=== PATIENT | female | born 1975 | race Caucasian/White ===

== ENCOUNTER 2018-07-13 04:38 | Emergency (ER) | payer MEDICAID ==
[~2018-07-13] VITALS: Ht 182.9 cm; Wt 90.2 kg
[2018-07-13] MEDS ORDERED: ipratropium/albuterol 3ml nebule NEB ONE (04:50)
[2018-07-13] MEDS ORDERED: predniSONE 20 mg tablet PO ONE (04:50)
[2018-07-13] MEDS ORDERED: TAM75C PO (05:19)
[2018-07-13] MEDS ORDERED: PRED10TA PO (05:19)
[2018-07-13] MEDS ORDERED: ALBU8.5H8 IH (05:19)
[2018-07-13 05:30] VITALS: BP 129/93
== END 2018-07-13 05:32 | disposition home or self-care (01) ==
LOC: ER 04:38
DX: J45.901 Unspecified asthma with (acute) exacerbation (principal); Z79.2 Long term (current) use of antibiotics; Z79.899 Other long term (current) drug therapy
CPT/HCPCS: 71045; 94640; 94760; 99283; J7512

== ENCOUNTER 2021-08-10 07:27 | Day surgery (SDC) | payer MEDICAID ==
[~2021-08-10] VITALS: Ht 180.3 cm; Wt 80.8 kg
[~2021-08-10 07:27] MED LIST: ALBU8.5H17 IH; PRED10TA PO
[2021-08-10] MEDS ORDERED: LIDOcaine 1% 30ml preserv. free vial IJ STA (07:41)
[2021-08-10] MEDS ORDERED: FURO20TA4 PO (07:45)
[2021-08-10] MEDS ORDERED: SPIR50TA5 PO (07:45)
[2021-08-10] MEDS ORDERED: THIA100T70 PO (07:45)
[2021-08-10] MEDS ORDERED: ALBU1.25 (07:45)
[2021-08-10] MEDS ORDERED: albumin 25% 100mL bottle x 1 IV PRN (07:45)
[2021-08-10] MEDS ORDERED: DOCU-345 PO (07:45)
[2021-08-10 08:00] VITALS: BP 98/68
[2021-08-10 08:40] VITALS: BP 119/68
[2021-08-10 08:45] VITALS: BP 116/84
[2021-08-10 09:00] VITALS: BP 111/64
[2021-08-10 09:15] VITALS: BP 99/61
[2021-08-10 09:30] VITALS: BP 106/68
[2021-08-10 10:09] LABS: LYMPHOCYTES,BODY FLUID 61 %; MONOCYTES,BODY FLUID 37 %; NEUTROPHILS,BODY FLUID 2 %
[2021-08-10 10:10] LABS: BF RBC COUNT 33 /CU MM; BF WBC COUNT 78 /CU MM (0-1000); BFAPPEAR CLEAR; BFCOLOR YELLOW; BFVOLUME 56 ML
[2021-08-10 10:11] LABS: TOTAL PROTEIN,BODY FLUID < 2.0 G/DL
== END 2021-08-10 09:32 | disposition home or self-care (01) ==
LOC: SSTAY O 07:27
PROVIDERS: ATTEND Radiology Diagnostic Radiology
DX: R18.8 Other ascites (principal); R14.0 Abdominal distension (gaseous); J45.909 Unspecified asthma, uncomplicated; K72.90 Hepatic failure, unspecified without coma; F17.210 Nicotine dependence, cigarettes, uncomplicated; Z72.89 Other problems related to lifestyle; Z79.899 Other long term (current) drug therapy
CPT/HCPCS: 49083; 84157; 87070; 89051

== ENCOUNTER 2021-08-23 07:05 | Day surgery (SDC) | payer MEDICAID ==
[2021-08-23] VITALS (9 sets, daily range): BP systolic 98–116; BP diastolic 54–62
[~2021-08-23] VITALS: Ht 180.3 cm; Wt 80.8 kg
[~2021-08-23 07:05] MED LIST changes: +ALBU1.25; -ALBU8.5H17 IH; +DOCU-345 PO; +FURO20TA4 PO; -PRED10TA PO; +SPIR50TA5 PO; +THIA100T70 PO
[2021-08-23] MEDS ORDERED: LIDOcaine 1% 30ml preserv. free vial IJ STA (07:46)
[2021-08-23] MEDS ORDERED: albumin (human) 25% 100 ML IV solution IV PRN (08:40)
== END 2021-08-23 11:00 | disposition home or self-care (01) ==
LOC: SSTAY O 07:05
PROVIDERS: ATTEND Radiology Vascular & Interventional Radiology
DX: R18.8 Other ascites (principal); R14.0 Abdominal distension (gaseous); K72.90 Hepatic failure, unspecified without coma; J45.909 Unspecified asthma, uncomplicated; F17.210 Nicotine dependence, cigarettes, uncomplicated; Z79.899 Other long term (current) drug therapy; Z72.89 Other problems related to lifestyle
CPT/HCPCS: 49083; J3490; P9047

== ENCOUNTER 2021-09-06 07:27 | Day surgery (SDC) | payer MEDICAID ==
[2021-09-06] VITALS (7 sets, daily range): BP systolic 105–135; BP diastolic 62–74
[~2021-09-06] VITALS: Ht 180.3 cm; Wt 79.6 kg
[2021-09-06] MEDS ORDERED: LIDOcaine 1% 30ml preserv. free vial IJ STA (07:39)
[2021-09-06] MEDS ORDERED: albumin 25% 100mL bottle x 1 IV PRN (07:50)
[2021-09-06] MEDS ORDERED: ALBU8.5H17 IH (08:18)
== END 2021-09-06 10:50 | disposition home or self-care (01) ==
LOC: SSTAY O 07:27
PROVIDERS: ATTEND Preventive Medicine Aerospace Medicine
DX: R18.8 Other ascites (principal); R14.0 Abdominal distension (gaseous); K72.90 Hepatic failure, unspecified without coma; J45.909 Unspecified asthma, uncomplicated; F17.210 Nicotine dependence, cigarettes, uncomplicated; Z72.89 Other problems related to lifestyle; Z79.899 Other long term (current) drug therapy
CPT/HCPCS: 49083; J3490; P9047

== ENCOUNTER 2021-09-18 06:08 | Day surgery (SDC) | payer MEDICAID ==
[~2021-09-18] VITALS: Ht 177.8 cm; Wt 80.8 kg
[~2021-09-18 06:08] MED LIST changes: -ALBU1.25; +ALBU8.5H17 IH
[2021-09-18] MEDS ORDERED: LIDOcaine 1% 30ml preserv. free vial SQ STA (06:22)
[2021-09-18 06:25] VITALS: BP 146/74
[2021-09-18] MEDS ORDERED: albumin 25% 100mL bottle x 1 IV PRN (06:25)
[2021-09-18 08:18] VITALS: BP 128/74
[2021-09-18 08:33] VITALS: BP 108/67
[2021-09-18 08:41] VITALS: BP 118/79
== END 2021-09-18 08:50 | disposition home or self-care (01) ==
LOC: SSTAY O 06:08
PROVIDERS: ATTEND Radiology Diagnostic Radiology
DX: R18.8 Other ascites (principal); R14.0 Abdominal distension (gaseous); J45.909 Unspecified asthma, uncomplicated; K72.90 Hepatic failure, unspecified without coma; F17.290 Nicotine dependence, other tobacco product, uncomplicated; Z79.899 Other long term (current) drug therapy
CPT/HCPCS: 49083

== ENCOUNTER 2021-10-01 08:34 | Day surgery (SDC) | payer MEDICAID ==
[~2021-10-01] VITALS: Ht 180.3 cm; Wt 82.3 kg
[2021-10-01 08:47] VITALS: BP 124/77
[2021-10-01] MEDS ORDERED: LIDOcaine 1% 30ml preserv. free vial SQ STA (08:49)
[2021-10-01] MEDS ORDERED: albumin 25% 100mL bottle x 1 IV PRN (08:55)
[2021-10-01 09:31] VITALS: BP 125/75
[2021-10-01 09:45] VITALS: BP 116/76
[2021-10-01 09:59] VITALS: BP 114/79
[2021-10-01 10:15] VITALS: BP 112/75
== END 2021-10-01 10:35 | disposition home or self-care (01) ==
LOC: SSTAY O 08:34
PROVIDERS: ATTEND Radiology Diagnostic Radiology
DX: R18.8 Other ascites (principal); R14.0 Abdominal distension (gaseous); J45.909 Unspecified asthma, uncomplicated; K72.90 Hepatic failure, unspecified without coma; F17.290 Nicotine dependence, other tobacco product, uncomplicated; Z72.89 Other problems related to lifestyle; Z79.899 Other long term (current) drug therapy
CPT/HCPCS: 49083; J3490; P9047

== ENCOUNTER 2021-10-18 07:03 | Day surgery (SDC) | payer MEDICAID ==
[~2021-10-18] VITALS: Ht 177.8 cm; Wt 80.8 kg
[2021-10-18] MEDS ORDERED: LIDOcaine 1%/PF 5ML 10 MG/ML VIAL SQ ONE (07:15)
[2021-10-18] MEDS ORDERED: LIDOcaine 1%/PF 5ML 10 MG/ML VIAL IJ ONE (07:25)
[2021-10-18] MEDS ORDERED: albumin 25% 100mL bottle x 1 IV PRN (07:25)
[2021-10-18] MEDS ORDERED: CHOL10006 PO (07:25)
[2021-10-18 07:50] VITALS: BP 128/80
[2021-10-18 09:04] VITALS: BP 128/110
[2021-10-18 09:18] VITALS: BP 128/77
[2021-10-18 09:33] VITALS: BP 134/74
== END 2021-10-18 09:55 | disposition home or self-care (01) ==
LOC: SSTAY O 07:03
PROVIDERS: ATTEND Radiology Diagnostic Radiology
DX: R18.8 Other ascites (principal); R14.0 Abdominal distension (gaseous); K72.10 Chronic hepatic failure without coma; J45.909 Unspecified asthma, uncomplicated; Z72.89 Other problems related to lifestyle; Z79.899 Other long term (current) drug therapy
CPT/HCPCS: 49083

== ENCOUNTER 2021-10-26 07:42 | Day surgery (SDC) | payer MEDICAID ==
[~2021-10-26] VITALS: Ht 180.3 cm; Wt 77.4 kg
[2021-10-26] VITALS (10 sets, daily range): BP systolic 94–120; BP diastolic 52–77
[~2021-10-26 07:42] MED LIST changes: +CHOL10006 PO
[2021-10-26] MEDS ORDERED: albumin 25% 100mL bottle x 1 IV PRN (07:55)
[2021-10-26] MEDS ORDERED: LIDOcaine 1%/PF 5ML 10 MG/ML VIAL IJ ONE (08:25)
== END 2021-10-26 10:55 | disposition home or self-care (01) ==
LOC: SSTAY O 07:42
PROVIDERS: ATTEND Radiology Diagnostic Radiology
DX: R18.8 Other ascites (principal); R14.0 Abdominal distension (gaseous); J45.909 Unspecified asthma, uncomplicated; K72.10 Chronic hepatic failure without coma; F17.290 Nicotine dependence, other tobacco product, uncomplicated; Z72.89 Other problems related to lifestyle; Z79.899 Other long term (current) drug therapy
CPT/HCPCS: 49083; J3490; P9047

== ENCOUNTER 2021-11-05 08:07 | Day surgery (SDC) | payer MEDICAID ==
[~2021-11-05] VITALS: Ht 180.3 cm; Wt 77.3 kg
[2021-11-05 08:34] VITALS: BP 145/64
[2021-11-05] MEDS ORDERED: albumin 25% 100mL bottle x 1 IV PRN (08:35)
[2021-11-05] MEDS ORDERED: LIDOcaine 1%/PF 5ML 10 MG/ML VIAL SQ ONE (08:50)
== END 2021-11-05 10:00 | disposition home or self-care (01) ==
LOC: SSTAY O 08:07
PROVIDERS: ATTEND Preventive Medicine Aerospace Medicine
DX: R18.8 Other ascites (principal); Z53.8 Procedure and treatment not carried out for other reasons; R14.0 Abdominal distension (gaseous); J45.909 Unspecified asthma, uncomplicated; K72.10 Chronic hepatic failure without coma; F17.290 Nicotine dependence, other tobacco product, uncomplicated
CPT/HCPCS: 76604; 76705

== ENCOUNTER 2021-11-20 07:07 | Day surgery (SDC) | payer MEDICAID ==
[~2021-11-20] VITALS: Ht 180.3 cm; Wt 78.7 kg
[2021-11-20] VITALS (11 sets, daily range): BP systolic 107–154; BP diastolic 68–83
[2021-11-20] MEDS ORDERED: albumin 25% 100mL bottle x 1 IV PRN (07:40)
[2021-11-20] MEDS ORDERED: LIDOcaine 1%/PF 5ML 10 MG/ML VIAL SQ ONE (08:25)
== END 2021-11-20 10:05 | disposition home or self-care (01) ==
LOC: SSTAY O 07:07
PROVIDERS: ATTEND Radiology Vascular & Interventional Radiology
DX: R18.8 Other ascites (principal); R14.0 Abdominal distension (gaseous); J45.909 Unspecified asthma, uncomplicated; K72.10 Chronic hepatic failure without coma; Z98.890 Other specified postprocedural states; Z72.89 Other problems related to lifestyle; Z79.899 Other long term (current) drug therapy
CPT/HCPCS: 49083; P9047; 76705

== ENCOUNTER 2021-12-04 08:16 | Day surgery (SDC) | payer MEDICAID ==
[~2021-12-04] VITALS: Ht 177.8 cm; Wt 78.8 kg
[2021-12-04 08:28] VITALS: BP 144/93
[2021-12-04] MEDS ORDERED: LIDOcaine 1%/PF 5ML 10 MG/ML VIAL SQ ONE (08:35)
[2021-12-04] MEDS ORDERED: normal saline 1000ml 1,000 ML IV PRN (08:40)
[2021-12-04] MEDS ORDERED: albumin 25% 100mL bottle x 1 IV PRN (08:40)
[2021-12-04 09:50] VITALS: BP 102/54
[2021-12-04 10:00] VITALS: BP 110/40
[2021-12-04 10:15] VITALS: BP 104/57
[2021-12-04 10:30] VITALS: BP 104/57
== END 2021-12-04 10:30 | disposition home or self-care (01) ==
LOC: SSTAY O 08:16
PROVIDERS: ATTEND Radiology Vascular & Interventional Radiology
DX: R18.8 Other ascites (principal); R14.0 Abdominal distension (gaseous); J45.909 Unspecified asthma, uncomplicated; K72.10 Chronic hepatic failure without coma; Z98.890 Other specified postprocedural states; F17.290 Nicotine dependence, other tobacco product, uncomplicated; Z72.89 Other problems related to lifestyle; Z79.899 Other long term (current) drug therapy
CPT/HCPCS: 49083; J3490; 76705

== ENCOUNTER 2021-12-31 07:09 | Day surgery (SDC) | payer MEDICAID ==
[~2021-12-31] VITALS: Ht 177.8 cm; Wt 76.3 kg
[2021-12-31 07:20] VITALS: BP 115/79
[2021-12-31] MEDS ORDERED: albumin 25% 100mL bottle x 1 IV PRN (07:55)
[2021-12-31 08:40] VITALS: BP 111/74
== END 2021-12-31 09:00 | disposition home or self-care (01) ==
LOC: SSTAY O 07:09
PROVIDERS: ATTEND Radiology Vascular & Interventional Radiology
DX: R18.8 Other ascites (principal); Z53.8 Procedure and treatment not carried out for other reasons; R14.0 Abdominal distension (gaseous); J45.909 Unspecified asthma, uncomplicated; K72.10 Chronic hepatic failure without coma; Z98.890 Other specified postprocedural states; F17.290 Nicotine dependence, other tobacco product, uncomplicated; Z72.89 Other problems related to lifestyle; Z79.899 Other long term (current) drug therapy
CPT/HCPCS: 76705

== ENCOUNTER → 2022-02-18 | Day surgery (SDC) | payer MEDICAID ==
[~2022-02-18] VITALS: Ht 182.9 cm; Wt 66.6 kg
[~2022-02-18] MED LIST changes: +LIDOcaine 1%/PF 5ML 10 MG/ML VIAL SQ ONE; +albumin 25% 100mL bottle x 1 IV PRN
[2022-02-18 08:40] VITALS: BP 105/64
[2022-02-18 09:25] VITALS: BP 105/64
== END | disposition home or self-care (01) ==
LOC: SSTAY O 08:06
PROVIDERS: ATTEND Preventive Medicine Aerospace Medicine
DX: R18.8 Other ascites (principal); Z53.8 Procedure and treatment not carried out for other reasons; R14.0 Abdominal distension (gaseous); K72.10 Chronic hepatic failure without coma; J45.909 Unspecified asthma, uncomplicated; F17.290 Nicotine dependence, other tobacco product, uncomplicated; Z98.890 Other specified postprocedural states; Z72.89 Other problems related to lifestyle; Z79.899 Other long term (current) drug therapy
CPT/HCPCS: 76705; Z7610; A6258

== ENCOUNTER 2022-03-12 08:05 | Day surgery (SDC) | payer MEDICAID ==
[~2022-03-12] VITALS: Ht 182.9 cm; Wt 73.7 kg
[~2022-03-12 08:05] MED LIST changes: +LIDOcaine 1% 30ml preserv. free vial SQ STA; -LIDOcaine 1%/PF 5ML 10 MG/ML VIAL SQ ONE; -albumin 25% 100mL bottle x 1 IV PRN
[2022-03-12 08:15] VITALS: BP 126/75
[2022-03-12] MEDS ORDERED: FURO-149 PO (08:21)
[2022-03-12] MEDS ORDERED: SPIR100T5 PO (08:22)
[2022-03-12] MEDS ORDERED: LIDOcaine 1%/PF 5ML 10 MG/ML VIAL SQ ONE (08:30)
[2022-03-12] MEDS ORDERED: albumin 25% 100mL bottle x 1 IV PRN (08:45)
[2022-03-12 09:30] VITALS: BP 126/75
[2022-03-12 09:45] VITALS: BP_SYST 112; BP_DIAS 72; BP_DIAS 73
== END 2022-03-12 09:50 | disposition home or self-care (01) ==
LOC: SSTAY O 08:05
PROVIDERS: ATTEND Radiology Vascular & Interventional Radiology
DX: R18.8 Other ascites (principal)
CPT/HCPCS: 49083; A6258; A6449

== ENCOUNTER 2022-04-26 07:21 | Day surgery (SDC) | payer MEDICAID ==
[~2022-04-26] VITALS: Ht 182.9 cm; Wt 70.5 kg
[~2022-04-26 07:21] MED LIST changes: +FURO-149 PO; -FURO20TA4 PO; -LIDOcaine 1% 30ml preserv. free vial SQ STA; +SPIR100T5 PO; -SPIR50TA5 PO
[2022-04-26] MEDS ORDERED: LIDOcaine 1% 30ml preserv. free vial SQ STA (07:25)
[2022-04-26] MEDS ORDERED: albumin 25% 100mL bottle x 1 IV PRN (07:35)
[2022-04-26] MEDS ORDERED: CARV-50 PO (07:38)
[2022-04-26 07:40] VITALS: BP 114/60
--- NOTE | 2022-04-26 09:05 | NUR ---
Limited US only, not enough fluid to drain per Li JOHNSON. Procedure canceled.
== END 2022-04-26 09:18 | disposition home or self-care (01) ==
LOC: SSTAY O 07:21
PROVIDERS: ATTEND Radiology Vascular & Interventional Radiology
DX: R14.0 Abdominal distension (gaseous) (principal); R18.8 Other ascites; F17.210 Nicotine dependence, cigarettes, uncomplicated; Z79.899 Other long term (current) drug therapy; J45.909 Unspecified asthma, uncomplicated; Z98.890 Other specified postprocedural states; Z72.89 Other problems related to lifestyle
CPT/HCPCS: 76705; A6258

== ENCOUNTER 2022-06-10 07:09 | Day surgery (SDC) | payer MEDICAID ==
[~2022-06-10] VITALS: Ht 182.9 cm; Wt 73.7 kg
[~2022-06-10 07:09] MED LIST changes: +CARV-50 PO
[2022-06-10] MEDS ORDERED: LIDOcaine 1% 30ml preserv. free vial SQ STA (07:24)
[2022-06-10 07:35] VITALS: BP 135/72
[2022-06-10] MEDS ORDERED: albumin 25% 100mL bottle x 1 IV PRN (07:35)
--- NOTE | 2022-06-10 09:16 | NUR ---
Procedure cancelled due to no fluid
== END 2022-06-10 09:00 | disposition home or self-care (01) ==
LOC: SSTAY O 07:09
PROVIDERS: ATTEND Radiology Vascular & Interventional Radiology
DX: R18.8 Other ascites (principal); J45.909 Unspecified asthma, uncomplicated; Z98.890 Other specified postprocedural states; Z72.89 Other problems related to lifestyle
CPT/HCPCS: 76705; A6258

== ENCOUNTER 2022-08-27 07:42 | Day surgery (SDC) | payer MEDICAID ==
[~2022-08-27] VITALS: Ht 177.8 cm; Wt 73.5 kg
[~2022-08-27 07:42] MED LIST changes: +albumin 25% 100mL bottle x 1 IV PRN
[2022-08-27 07:46] VITALS: BP 130/65
--- NOTE | 2022-08-27 08:45 | NUR ---
No fluid, procedure cancelled.
== END 2022-08-27 08:46 | disposition home or self-care (01) ==
LOC: SSTAY O 07:42
PROVIDERS: ATTEND Radiology Vascular & Interventional Radiology
DX: R18.8 Other ascites (principal); J45.909 Unspecified asthma, uncomplicated; Z98.890 Other specified postprocedural states; F17.210 Nicotine dependence, cigarettes, uncomplicated; Z72.89 Other problems related to lifestyle; Z79.899 Other long term (current) drug therapy
CPT/HCPCS: 76705